=== PATIENT | female | born 1955 | race African-American/Black ===

== ENCOUNTER 2022-11-06 15:49 | Inpatient (IN) | payer MEDICARE, MEDICAID ==
[~2022-11-06] VITALS: Ht 170.2 cm; Wt 92.1 kg
[2022-11-06 16:41] LABS: HEMATOCRIT. 31.4 % (36.0-48.0); MEAN CORPUSCULAR HEMOGLOBIN 28.4 pg (28.0-32.0); MEAN CORPUSCULAR VOLUME 88.7 fL (81.0-99.0); MEAN PLATELET VOLUME 9.4 fl (7.4-10.4); PLATELET 151 x1000/uL (130-400); RED BLOOD CELL COUNT 3.54 mill/uL (4.2-5.4); RED CELL DISTRIBUTION WIDTH 16.6 % (11.6-14.6)
[2022-11-06 16:56] LABS: ETHANOL BLOOD < 10 mg/dL
[2022-11-06 16:59] LABS: CHLORIDE 100 mEq/L (98-107)
[2022-11-06 17:14] LABS: PLATELET ESTIMATE NORMAL
[2022-11-06] MEDS ORDERED: PIPERACILLIN/TAZ 3.375G PREMIX 50 ML IV ONE (18:15)
[2022-11-06] MEDS ORDERED: VANCOMYCIN 1G PREMIX 200 ML IV ONE (18:15)
[2022-11-06] MEDS ORDERED: SODIUM CHLORIDE 0.9% 1,000 ML IV ONE ×2 (18:15)
[2022-11-06] MEDS ORDERED: HEPARIN 25,000 UNITS PREMIX 250 ML IV ONE (20:00)
[2022-11-06 20:23] LABS: INR 1.1; PARTIAL THROMBOPLASTIN TIME 30.5 sec (23.4-31.0); PROTHROMBIN TIME 11.4 sec (9.6-11.0)
[2022-11-06] MEDS ORDERED: HEPARIN BOLUS PRN aPTT 30-44 IV (22:00)
[2022-11-06] MEDS ORDERED: HEPARIN 25,000 UNITS PREMIX 250 ML IV SCH (22:00)
[2022-11-06 22:13] LABS: CLARITY URINE CLEAR (CLEAR); COLOR URINE YELLOW (YELLOW); KETONES URINE TRACE (NEGATIVE); LEUKOCYTE ESTERASE URINE NEGATIVE (NEGATIVE); NITRITE URINE NEGATIVE (NEGATIVE); OCCULT BLOOD URINE 2+ (NEGATIVE); PH URINE 7.5 (4.5-8.0); PROTEIN URINE 3+ (NEGATIVE); SPECIFIC GRAVITY URINE 1.016 (1.005-1.030); UROBILINOGEN URINE 0.2 E.U./dL (0.2-1.0)
[2022-11-06 22:24] LABS: *AMPHETAMINES SCREEN URINE NEGATIVE (NEGATIVE); *BARBITURATES SCREEN URINE NEGATIVE (NEGATIVE); *BENZODIAZEPINES SCREEN URINE NEGATIVE (NEGATIVE); *COCAINE SCREEN URINE NEGATIVE (NEGATIVE); CANNABINOID URINE SCREEN NEGATIVE (NEGATIVE); METHADONE URINE SCREEN NEGATIVE (NEGATIVE); OPIATES URINE SCREEN NEGATIVE (NEGATIVE); PHENCYCLIDINE URINE SCREEN NEGATIVE (NEGATIVE)
[2022-11-07] VITALS (12 sets, daily range): BP systolic 89–161; BP diastolic 54–80
[2022-11-07] MEDS ORDERED: IPRATROPIUM/ALBUTEROL 0.5-3(2.5)MG/3ML NEB HHN PRN (00:15)
[2022-11-07] MEDS ORDERED: CLONIDINE 0.1MG TABLET PO PRN (00:15)
[2022-11-07] MEDS ORDERED: DEXTROSE 50% WATER 50ML SYRINGE IV PRN (00:15)
[2022-11-07] MEDS ORDERED: ONDANSETRON HCL 4MG/2ML INJ IV PRN (00:15)
[2022-11-07] MEDS ORDERED: ACETAMINOPHEN 325MG TABLET PO PRN (00:15)
[2022-11-07] MEDS ORDERED: IPRATROPIUM BROMIDE (0.02%) 0.5MG/2.5ML NEB HHN PRN (00:30)
[2022-11-07] MEDS ORDERED: GABA-290 PO (03:16)
[2022-11-07] MEDS ORDERED: LIP40 PO (03:17)
[2022-11-07] MEDS ORDERED: HYDR100T26 PO (03:18)
[2022-11-07] MEDS ORDERED: FAMO20TA8 PO (03:19)
[2022-11-07] MEDS ORDERED: ASPI-1406 PO (03:20)
[2022-11-07] MEDS ORDERED: ISOS10TA2 PO (03:21)
[2022-11-07] MEDS ORDERED: ALD50 PO (03:22)
[2022-11-07] MEDS ORDERED: PRO1 PO (03:24)
[2022-11-07] MEDS ORDERED: HEPARIN BOLUS PRN aPTT <30 IV (04:00)
[2022-11-07 06:07] LABS: HEMATOCRIT. 34.4 % (36.0-48.0); HEMOGLOBIN. 11.5 g/dL (12.0-16.0); MEAN CORPUSCULAR HEMOGLOBIN 29.2 pg (28.0-32.0); MEAN CORPUSCULAR VOLUME 87.3 fL (81.0-99.0); MEAN PLATELET VOLUME 9.4 fl (7.4-10.4); PLATELET 144 x1000/uL (130-400); RED BLOOD CELL COUNT 3.94 mill/uL (4.2-5.4); RED CELL DISTRIBUTION WIDTH 16.9 % (11.6-14.6)
[2022-11-07] MEDS: BLOOD SUGAR DIAGNOSTIC STRIP TEST SCH ×4 (07:46→20:42)
[2022-11-07] MEDS: INSULIN LISPRO 100 UNITS/ML SUBCUT SCH ×4 (08:10→20:42)
[2022-11-07] MEDS ORDERED: LIDOCAINE HCL 1% 10 MG/ML 10ML VIAL ONE (08:35)
[2022-11-07] MEDS: PIPERACILLIN/TAZOBACTAM 3.375 G in DEXTROSE 5% WATER 50 ML IV SCH ×2 (09:00→20:48)
[2022-11-07 09:10] LABS: BG BASE EXCESS -3.9 mmol/L (-2.0-2.0); BG CARBOXYHEMOGLOBIN 0.6 % (0.5-1.5); BG DEOXYHEMOGLOBIN 5.6 % (0.0-5.0); BG HCO3 ACT 19.5 mmol/L (22.0-26.0); BG METHEMOGLOBIN 0.3 % (0.0-1.5); BG OXYGEN SATURATION 94.3 % (92.0-98.5); BG OXYHEMOGLOBIN 93.5 % (94.0-97.0); BG PCO2 30.3 mmHg (35.0-45.0); BG PH 7.427 (7.350-7.450); BG PO2 76.5 mmHg (75.0-100.0); BG SAMPLE SITE RIGHT BRACHIAL; BG TOTAL HEMOGLOBIN 11.8 g/dL (12.0-18.0); BG VENT MODE MASK - SIMPLE
[2022-11-07] MEDS ORDERED: VANCOMYCIN 1G PREMIX 200 ML IV NR (12:00)
[2022-11-07] MEDS: ASPIRIN 81MG EC TABLET PO SCH (12:30)
[2022-11-07] MEDS ORDERED: NALOXONE HCL 0.4MG/ML VIAL IV PRN (12:30)
[2022-11-07 13:22] LABS: T4 FREE 1.09 ng/dL (0.76-1.46)
[2022-11-07 14:07] LABS: HEPATITIS B SURFACE ANTIGEN NEGATIVE
[2022-11-07 14:08] LABS: PLATELET ESTIMATE NORMAL
[2022-11-07] MEDS: ACETAMINOPHEN 325MG TABLET PO PRN (22:03)
[2022-11-08] VITALS (22 sets, daily range): BP systolic 73–178; BP diastolic 30–72
[2022-11-08] MEDS: HYDROCODONE/ACETAMINOPHEN 5/325MG TABLET PO PRN ×2 (05:20→09:29)
[2022-11-08 05:57] LABS: MEAN CORPUSCULAR HEMOGLOBIN 29.2 pg (28.0-32.0); MEAN CORPUSCULAR VOLUME 87.6 fL (81.0-99.0); MEAN PLATELET VOLUME 10.2 fl (7.4-10.4); PLATELET 138 x1000/uL (130-400); RED BLOOD CELL COUNT 3.43 mill/uL (4.2-5.4); RED CELL DISTRIBUTION WIDTH 16.8 % (11.6-14.6)
[2022-11-08] MEDS: BLOOD SUGAR DIAGNOSTIC STRIP TEST SCH ×4 (06:21→21:00)
[2022-11-08] MEDS: INSULIN LISPRO 100 UNITS/ML SUBCUT SCH ×4 (06:38→21:00)
[2022-11-08 09:27] LABS: NUCLEATED RED BLOOD CELLS 1 /100 WBC; PLATELET ESTIMATE NORMAL
[2022-11-08] MEDS: DOCUSATE SODIUM 100MG CAPSULE PO PRN ×2 (09:28→17:40)
[2022-11-08] MEDS: FAMOTIDINE 20MG TABLET PO SCH (09:28)
[2022-11-08] MEDS: ASPIRIN 81MG EC TABLET PO SCH (09:28)
[2022-11-08] MEDS: PIPERACILLIN/TAZOBACTAM 3.375 G in DEXTROSE 5% WATER 50 ML IV SCH ×2 (09:29→21:54)
[2022-11-08] MEDS: MIDODRINE HCL 5MG TABLET PO SCH (16:52)
[2022-11-08] MEDS: ENOXAPARIN 100MG/ML SYR SUBCUT SCH (16:53)
[2022-11-08] MEDS ORDERED: SODIUM CHLORIDE 0.9% 250 ML IV ONE (17:00)
[2022-11-08] MEDS ORDERED: NOREPINEPHRINE 32 MG in DEXT 5% WATER 218 ML IV PRN (22:00)
[2022-11-08 23:33] LABS: HEMATOCRIT. 31.3 % (36.0-48.0); HEMOGLOBIN. 10.2 g/dL (12.0-16.0); MEAN CORPUSCULAR HEMOGLOBIN 28.3 pg (28.0-32.0); MEAN CORPUSCULAR VOLUME 86.6 fL (81.0-99.0); MEAN PLATELET VOLUME 9.7 fl (7.4-10.4); PLATELET 144 x1000/uL (130-400); RED BLOOD CELL COUNT 3.61 mill/uL (4.2-5.4); RED CELL DISTRIBUTION WIDTH 16.5 % (11.6-14.6)
[2022-11-08 23:44] LABS: CHLORIDE 95 mEq/L (98-107)
[2022-11-09] VITALS (90 sets, daily range): BP systolic 75–207; BP diastolic 18–86
[2022-11-09 00:09] LABS: PLATELET ESTIMATE NORMAL
[2022-11-09] MEDS: BLOOD SUGAR DIAGNOSTIC STRIP TEST SCH ×4 (05:45→21:12)
[2022-11-09 05:57] LABS: BASOPHILS % 0.4 % (0.0-2.0); EOSINOPHILS % 0.4 % (0.0-5.0); HEMATOCRIT. 30.1 % (36.0-48.0); HEMOGLOBIN. 9.8 g/dL (12.0-16.0); LYMPHOCYTES % 10.4 % (20.0-50.0); MEAN CORPUSCULAR HEMOGLOBIN 28.4 pg (28.0-32.0); MEAN CORPUSCULAR VOLUME 87.1 fL (81.0-99.0); MEAN PLATELET VOLUME 9.9 fl (7.4-10.4); MONOCYTES % 10.9 % (2.0-8.0); NEUTROPHILS % 77.9 % (40.0-76.0); PLATELET 143 x1000/uL (130-400); RED BLOOD CELL COUNT 3.46 mill/uL (4.2-5.4); RED CELL DISTRIBUTION WIDTH 16.6 % (11.6-14.6)
[2022-11-09] MEDS: INSULIN LISPRO 100 UNITS/ML SUBCUT SCH ×4 (06:31→21:16)
[2022-11-09] MEDS ORDERED: IOHEXOL-350 100 ML BOTTLE ONE (09:12)
[2022-11-09] MEDS: PIPERACILLIN/TAZOBACTAM 3.375 G in DEXTROSE 5% WATER 50 ML IV SCH ×2 (11:30→21:15)
[2022-11-09] MEDS: MIDODRINE HCL 5MG TABLET PO SCH ×3 (12:22→17:54)
[2022-11-09] MEDS: FAMOTIDINE 20MG TABLET PO SCH (12:22)
[2022-11-09] MEDS: ASPIRIN 81MG EC TABLET PO SCH (12:22)
[2022-11-09] MEDS: ENOXAPARIN 100MG/ML SYR SUBCUT SCH (14:30)
[2022-11-09] MEDS ORDERED: VANCOMYCIN 1G PREMIX 200 ML IV NR (18:00)
[2022-11-10] VITALS (54 sets, daily range): BP systolic 68–156; BP diastolic 23–98
[2022-11-10 05:14] LABS: BASOPHILS % 0.4 % (0.0-2.0); HEMATOCRIT. 29.2 % (36.0-48.0); HEMOGLOBIN. 9.6 g/dL (12.0-16.0); LYMPHOCYTES % 8.1 % (20.0-50.0); MEAN CORPUSCULAR HEMOGLOBIN 28.7 pg (28.0-32.0); MEAN CORPUSCULAR VOLUME 87.6 fL (81.0-99.0); MEAN PLATELET VOLUME 9.9 fl (7.4-10.4); MONOCYTES % 9.9 % (2.0-8.0); NEUTROPHILS % 80.6 % (40.0-76.0); PLATELET 173 x1000/uL (130-400); RED BLOOD CELL COUNT 3.33 mill/uL (4.2-5.4); RED CELL DISTRIBUTION WIDTH 16.8 % (11.6-14.6)
[2022-11-10 06:16] LABS: PHOSPHORUS 6.5 mg/dL (2.5-4.9)
[2022-11-10] MEDS: BLOOD SUGAR DIAGNOSTIC STRIP TEST SCH ×4 (06:24→21:04)
[2022-11-10] MEDS: INSULIN LISPRO 100 UNITS/ML SUBCUT SCH ×4 (06:48→21:54)
[2022-11-10] MEDS: FAMOTIDINE 20MG TABLET PO SCH (08:10)
[2022-11-10] MEDS: FOLIC ACID/VITAMIN B COMP W-C TABLET PO SCH (08:10)
[2022-11-10] MEDS: CALCIUM ACETATE 667MG CAPSULE PO SCH ×3 (08:10→17:00)
[2022-11-10] MEDS: ASPIRIN 81MG EC TABLET PO SCH (08:10)
[2022-11-10] MEDS: MIDODRINE HCL 5MG TABLET PO SCH ×3 (08:10→17:00)
[2022-11-10] MEDS: PIPERACILLIN/TAZOBACTAM 3.375 G in DEXTROSE 5% WATER 50 ML IV SCH ×2 (09:42→22:45)
[2022-11-10] MEDS: ENOXAPARIN 100MG/ML SYR SUBCUT SCH (14:00)
[2022-11-10] MEDS: EPOETIN ALFA-EPBX 4,000 UNIT/ML VIAL SUBCUT SCH (21:55)
[2022-11-11] VITALS (14 sets, daily range): BP systolic 90–154; BP diastolic 41–80
[2022-11-11 07:00] LABS: BASOPHILS % 0.4 % (0.0-2.0); EOSINOPHILS % 0.8 % (0.0-5.0); HEMATOCRIT. 27.1 % (36.0-48.0); HEMOGLOBIN. 8.8 g/dL (12.0-16.0); LYMPHOCYTES % 8.2 % (20.0-50.0); MEAN CORPUSCULAR HEMOGLOBIN 27.9 pg (28.0-32.0); MEAN PLATELET VOLUME 9.2 fl (7.4-10.4); MONOCYTES % 6.4 % (2.0-8.0); NEUTROPHILS % 84.2 % (40.0-76.0); PLATELET 231 x1000/uL (130-400); RED BLOOD CELL COUNT 3.16 mill/uL (4.2-5.4); RED CELL DISTRIBUTION WIDTH 16.4 % (11.6-14.6)
[2022-11-11 07:29] LABS: PHOSPHORUS 6.2 mg/dL (2.5-4.9)
[2022-11-11] MEDS: BLOOD SUGAR DIAGNOSTIC STRIP TEST SCH ×4 (07:43→22:30)
[2022-11-11] MEDS: INSULIN LISPRO 100 UNITS/ML SUBCUT SCH ×4 (08:05→22:29)
[2022-11-11] MEDS: CALCIUM ACETATE 667MG CAPSULE PO SCH ×3 (08:42→17:46)
[2022-11-11] MEDS: ASPIRIN 81MG EC TABLET PO SCH (08:43)
[2022-11-11] MEDS: MIDODRINE HCL 5MG TABLET PO SCH ×3 (08:43→17:46)
[2022-11-11] MEDS: FOLIC ACID/VITAMIN B COMP W-C TABLET PO SCH (08:43)
[2022-11-11] MEDS: FAMOTIDINE 20MG TABLET PO SCH (08:43)
[2022-11-11] MEDS: PIPERACILLIN/TAZOBACTAM 3.375 G in DEXTROSE 5% WATER 50 ML IV SCH ×2 (08:43→22:29)
[2022-11-11] MEDS: ENOXAPARIN 100MG/ML SYR SUBCUT SCH (14:36)
[2022-11-12] VITALS: BP 142/32
[2022-11-12 04:00] VITALS: BP 133/33
[2022-11-12 07:04] LABS: BASOPHILS % 0.7 % (0.0-2.0); EOSINOPHILS % 0.4 % (0.0-5.0); HEMATOCRIT. 26.3 % (36.0-48.0); HEMOGLOBIN. 8.9 g/dL (12.0-16.0); LYMPHOCYTES % 7.6 % (20.0-50.0); MEAN CORPUSCULAR HEMOGLOBIN 28.8 pg (28.0-32.0); MEAN CORPUSCULAR VOLUME 85.6 fL (81.0-99.0); MEAN PLATELET VOLUME 8.8 fl (7.4-10.4); MONOCYTES % 4.3 % (2.0-8.0); PLATELET 300 x1000/uL (130-400); RED BLOOD CELL COUNT 3.07 mill/uL (4.2-5.4); RED CELL DISTRIBUTION WIDTH 16.6 % (11.6-14.6)
[2022-11-12] MEDS: BLOOD SUGAR DIAGNOSTIC STRIP TEST SCH ×4 (07:40→21:00)
[2022-11-12] MEDS: INSULIN LISPRO 100 UNITS/ML SUBCUT SCH ×4 (08:10→21:00)
[2022-11-12] MEDS: ASPIRIN 81MG EC TABLET PO SCH (08:23)
[2022-11-12] MEDS: FAMOTIDINE 20MG TABLET PO SCH (08:23)
[2022-11-12] MEDS: CALCIUM ACETATE 667MG CAPSULE PO SCH ×3 (08:23→17:50)
[2022-11-12] MEDS: FOLIC ACID/VITAMIN B COMP W-C TABLET PO SCH (08:23)
[2022-11-12] MEDS: MIDODRINE HCL 5MG TABLET PO SCH ×3 (08:24→17:51)
[2022-11-12] MEDS: PIPERACILLIN/TAZOBACTAM 3.375 G in DEXTROSE 5% WATER 50 ML IV SCH (08:31)
[2022-11-12 12:00] VITALS: BP 143/72
[2022-11-12 16:00] VITALS: BP 141/53
[2022-11-12] MEDS: ENOXAPARIN 100MG/ML SYR SUBCUT SCH (17:51)
[2022-11-12] MEDS: AMPICILLIN 2,000 MG in SODIUM CHLORIDE 0.9% 100 ML IV SCH (18:45)
[2022-11-12 20:00] VITALS: BP 159/42
[2022-11-13] VITALS: BP 115/52
[2022-11-13 04:00] VITALS: BP 159/57
[2022-11-13 06:50] LABS: BASOPHILS % 0.7 % (0.0-2.0); EOSINOPHILS % 1.3 % (0.0-5.0); HEMATOCRIT. 27.2 % (36.0-48.0); HEMOGLOBIN. 9.2 g/dL (12.0-16.0); LYMPHOCYTES % 7.8 % (20.0-50.0); MEAN CORPUSCULAR HEMOGLOBIN 29.7 pg (28.0-32.0); MEAN CORPUSCULAR VOLUME 87.6 fL (81.0-99.0); MEAN PLATELET VOLUME 8.5 fl (7.4-10.4); MONOCYTES % 3.6 % (2.0-8.0); NEUTROPHILS % 86.6 % (40.0-76.0); PLATELET 356 x1000/uL (130-400); RED CELL DISTRIBUTION WIDTH 16.3 % (11.6-14.6)
[2022-11-13] MEDS: BLOOD SUGAR DIAGNOSTIC STRIP TEST SCH ×4 (07:40→20:58)
[2022-11-13 08:00] VITALS: BP 165/143
[2022-11-13] MEDS: INSULIN LISPRO 100 UNITS/ML SUBCUT SCH ×4 (08:10→21:56)
[2022-11-13] MEDS: MIDODRINE HCL 5MG TABLET PO SCH (09:00)
[2022-11-13] MEDS: CALCIUM ACETATE 667MG CAPSULE PO SCH ×3 (09:46→18:58)
[2022-11-13] MEDS: AMPICILLIN 2,000 MG in SODIUM CHLORIDE 0.9% 100 ML IV SCH ×2 (09:46→22:56)
[2022-11-13] MEDS: ASPIRIN 81MG EC TABLET PO SCH (09:47)
[2022-11-13] MEDS: FAMOTIDINE 20MG TABLET PO SCH (09:47)
[2022-11-13] MEDS: FOLIC ACID/VITAMIN B COMP W-C TABLET PO SCH (09:50)
[2022-11-13] MEDS ORDERED: CALC667C PO (10:04)
[2022-11-13] MEDS ORDERED: NEPVIT PO (10:04)
[2022-11-13] MEDS: APIXABAN 5 MG TABLET PO SCH (18:58)
[2022-11-13] MEDS: ACETAMINOPHEN 325MG TABLET PO PRN (18:59)
[2022-11-13 20:00] VITALS: BP 183/62
[2022-11-13] MEDS: EPOETIN ALFA-EPBX 4,000 UNIT/ML VIAL SUBCUT SCH (20:59)
[2022-11-14] VITALS (12 sets, daily range): BP systolic 106–175; BP diastolic 32–89
[2022-11-14 07:17] LABS: BASOPHILS % 0.7 % (0.0-2.0); EOSINOPHILS % 1.5 % (0.0-5.0); HEMATOCRIT. 28.4 % (36.0-48.0); HEMOGLOBIN. 9.1 g/dL (12.0-16.0); LYMPHOCYTES % 11.3 % (20.0-50.0); MEAN CORPUSCULAR HEMOGLOBIN 28.2 pg (28.0-32.0); MEAN CORPUSCULAR VOLUME 87.8 fL (81.0-99.0); MEAN PLATELET VOLUME 8.4 fl (7.4-10.4); NEUTROPHILS % 78.5 % (40.0-76.0); PLATELET 418 x1000/uL (130-400); RED BLOOD CELL COUNT 3.24 mill/uL (4.2-5.4); RED CELL DISTRIBUTION WIDTH 16.5 % (11.6-14.6)
[2022-11-14] MEDS: BLOOD SUGAR DIAGNOSTIC STRIP TEST SCH ×2 (07:40→12:40)
[2022-11-14] MEDS ORDERED: PSYLLIUM SEED PACKET PO SCH (09:00)
[2022-11-14] MEDS: AMPICILLIN 2,000 MG in SODIUM CHLORIDE 0.9% 100 ML IV SCH (09:29)
[2022-11-14] MEDS: CALCIUM ACETATE 667MG CAPSULE PO SCH ×2 (09:29→14:04)
[2022-11-14] MEDS: FAMOTIDINE 20MG TABLET PO SCH (09:30)
[2022-11-14] MEDS: INSULIN LISPRO 100 UNITS/ML SUBCUT SCH ×2 (09:30→14:05)
[2022-11-14] MEDS: ASPIRIN 81MG EC TABLET PO SCH (09:30)
[2022-11-14] MEDS: APIXABAN 5 MG TABLET PO SCH (09:30)
[2022-11-14] MEDS: FOLIC ACID/VITAMIN B COMP W-C TABLET PO SCH (09:30)
[2022-11-14] MEDS: PSYLLIUM SEED PACKET PO SCH ×2 (10:00→13:00)
== END 2022-11-14 18:24 | DRG 314 ==
LOC: ER 15:59 → 7WST 20:02 → EDBEDREQTM 20:07 → EDBEDREQ 20:07 → EDBEDREQSVC 20:07 → MICUSO 11-08 21:31 → 7WST 11-10 20:26
PROVIDERS: ADMIT Family Medicine Adult Medicine; ATTEND Family Medicine Adult Medicine
PROC: 02HV33Z Insertion of Infusion Device into Superior Vena Cava, Percutaneous Approach (ICD-10-PCS; principal; 2022-11-07)
PROC: B5181ZA Fluoroscopy of Superior Vena Cava using Low Osmolar Contrast, Guidance (ICD-10-PCS; 2022-11-07)
PROC: B548ZZA Ultrasonography of Superior Vena Cava, Guidance (ICD-10-PCS; 2022-11-07)
PROC: 5A1D70Z Performance of Urinary Filtration, Intermittent, Less than 6 Hours Per Day (ICD-10-PCS; 2022-11-07)
PROC: 05PY33Z Removal of Infusion Device from Upper Vein, Percutaneous Approach (ICD-10-PCS; 2022-11-07)
PROC: 5A1D70Z Performance of Urinary Filtration, Intermittent, Less than 6 Hours Per Day (ICD-10-PCS; 2022-11-09)
PROC: 5A1D70Z Performance of Urinary Filtration, Intermittent, Less than 6 Hours Per Day (ICD-10-PCS; 2022-11-11)
DX: T80.211A Bloodstream infection due to central venous catheter, initial encounter (principal); A41.9 Sepsis, unspecified organism; G92.8 Other toxic encephalopathy; N18.6 End stage renal disease; I26.99 Other pulmonary embolism without acute cor pulmonale; J96.21 Acute and chronic respiratory failure with hypoxia; R65.21 Severe sepsis with septic shock; E87.20 Acidosis, unspecified; M62.82 Rhabdomyolysis; I50.30 Unspecified diastolic (congestive) heart failure; I13.2 Hypertensive heart and chronic kidney disease with heart failure and with stage 5 chronic kidney disease, or end stage renal disease; I76 Septic arterial embolism; I38 Endocarditis, valve unspecified; E11.65 Type 2 diabetes mellitus with hyperglycemia; D25.9 Leiomyoma of uterus, unspecified; E87.5 Hyperkalemia; E11.22 Type 2 diabetes mellitus with diabetic chronic kidney disease; N20.0 Calculus of kidney; I27.20 Pulmonary hypertension, unspecified; I07.1 Rheumatic tricuspid insufficiency; R74.01 Elevation of levels of liver transaminase levels; D63.1 Anemia in chronic kidney disease; E88.09 Other disorders of plasma-protein metabolism, not elsewhere classified; M16.0 Bilateral primary osteoarthritis of hip; Z91.15 Patient's noncompliance with renal dialysis; Z99.81 Dependence on supplemental oxygen; Z79.4 Long term (current) use of insulin; Z99.2 Dependence on renal dialysis; Z79.01 Long term (current) use of anticoagulants; Z90.711 Acquired absence of uterus with remaining cervical stump
CPT/HCPCS: 36415; 36556; 36589; 36600; 70551; 71045; 72040; 72070; 72100; 73521; 74176; 75572; 77001; 80048; 80053; 80076; 80202; 80305; 80320; 81003; 82140; 82375; 82550; 82805; 82962; 83036; 83605; 83735; 84100; 84145; 84439; 84443; 84481; 84484; 85025; 86705; 86709; 86803; 87070; 87076; 87077; 87340; 87426; 87804; 90935; 93005; 93306; 99291; C1752; C1893; C9803; J0290; J0885; J1644; J1650; J1815; J2543; J3370; J3490; J7030; J7050; J7060; Q9967; G0480

== ENCOUNTER 2023-06-30 17:48 | Emergency (ER) | payer MEDICARE, MEDICAID ==
[~2023-06-30] VITALS: Ht 162.6 cm; Wt 70.0 kg
[~2023-06-30 17:48] MED LIST: ASPI-1406 PO; CALC667C PO; FAMO20TA8 PO; GABA-290 PO; LIP40 PO; NEPVIT PO
[2023-06-30 17:51] VITALS: BP 118/67; PULSE 72; RESP 18; TEMP 98.5; O2SAT 97
[2023-06-30 18:26] LABS: BASOPHILS % 1.2 % (0.0-2.0); EOSINOPHILS % 2.8 % (0.0-5.0); HEMATOCRIT. 45.8 % (36.0-48.0); HEMOGLOBIN. 14.5 g/dL (12.0-16.0); LYMPHOCYTES % 27.7 % (20.0-50.0); MEAN CORPUSCULAR HEMOGLOBIN 29.9 pg (28.0-32.0); MEAN CORPUSCULAR HGB CONC 31.8 g/dL (31.0-37.0); MEAN CORPUSCULAR VOLUME 94.2 fL (81.0-99.0); MEAN PLATELET VOLUME 8.4 fl (7.4-10.4); MONOCYTES % 6.9 % (2.0-8.0); NEUTROPHILS % 61.4 % (40.0-76.0); PLATELET 252 x1000/uL (130-400); RED BLOOD CELL COUNT 4.86 mill/uL (4.2-5.4); RED CELL DISTRIBUTION WIDTH 17.9 % (11.6-14.6)
[2023-06-30 18:38] LABS: CHLORIDE 97 mEq/L (98-107); INDEX HEMOLYSI 1 (1-3); INDEX ICTERIC 1 (1-4); INDEX LIPEMIC 1 (1-3); POTASSIUM 3.6 mEq/L (3.5-5.1); SODIUM 136 mEq/L (136-145)
[2023-06-30 18:42] LABS: ALBUMIN 3.8 g/dL (3.4-5.0); CALCIUM 9.6 mg/dL (8.5-10.1); CARBON DIOXIDE 30 mEq/L (21-32)
[2023-06-30 18:51] LABS: ALANINE AMINOTRANSFERASE 12 IU/L (13-61); ASPARTATE AMINOTRANSFERASE 14 IU/L (15-37); BILIRUBIN TOTAL 0.6 mg/dL (0.1-1.0); CREATININE 3.8 mg/dL (0.6-1.3); GLUCOSE 176 mg/dL (70-105); NT PRO B-TYPE NATRIURETIC PEP 2207 pg/mL (5-125); PROTEIN TOTAL 8.6 g/dL (6.0-8.3); UREA NITROGEN BLOOD 13 mg/dL (7-21)
[2023-06-30 18:53] LABS: TROPONIN I HIGH SENSITIVITY 57 ng/L (<54)
== END 2023-06-30 20:38 | disposition left against medical advice (07) ==
LOC: ER 18:00
DX: I21.4 Non-ST elevation (NSTEMI) myocardial infarction (principal); R79.89 Other specified abnormal findings of blood chemistry; I12.0 Hypertensive chronic kidney disease with stage 5 chronic kidney disease or end stage renal disease; N18.6 End stage renal disease; Z99.2 Dependence on renal dialysis; Z98.890 Other specified postprocedural states
CPT/HCPCS: 36415; 71045; 80053; 83880; 84484; 85025; 93005; 99285